=== PATIENT | female | born 1940 | race Caucasian/White ===

== ENCOUNTER 2020-07-17 16:35 | Emergency (ER) | payer MEDICARE, OTHER ==
[~2020-07-17] VITALS: Ht 158.8 cm; Wt 60.5 kg
[2020-07-17] MEDS ORDERED: IV NORMAL SALINE 1,000ML 1,000 ML IV ONE (17:00)
--- NOTE | 2020-07-17 17:11 | PHYS DOC ---
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 Patient states she does not have a socket on the right hip and use of the left lower extremity more than normal. She states she has noted some difficulty with putting weight on the left lower extremity. Denies any injury. She also states she has had loss of test and female 4 weeks. Denies any fever, cough, congestion. PCP not Dr. Negro-She states Dr. Negro is PCP for the mother. Review of Systems Review of Systems Constitutional: Denies fever or chills [] Eyes: Denies change in visual acuity, redness, or eye pain [] HENT: Denies nasal congestion or sore throat [] Respiratory: Denies cough or shortness of breath [] Cardiovascular: No additional information not addressed in HPI [] GI: Denies abdominal pain, nausea, vomiting, bloody stools or diarrhea [] : Denies dysuria or hematuria [] Musculoskeletal: left lower extremity weakness Integument: Denies rash or skin lesions [] Neurologic: reports weakness mostly to the LLE. Denies headache, focal weakness or sensory changes [] All other systems were reviewed and found to be within normal limits, except as documented in this note. Current Medications Current Medications Current Medications Medications (Trade) Dose Ordered Sig/Charlotte Start Time Stop Time Status Last Admin Dose Admin Sodium Chloride 1,000 ml @ 1,000 mls/hr 1X ONCE 07/17/20 17:00 07/17/20 17:59 Allergies Allergies Allergies Coded Allergies Type Severity Reaction Last Updated Verified No Known Drug Allergies 07/17/20 No Physical Exam Physical Exam Constitutional: Well developed, well nourished, no acute distress, non-toxic appearance. [] HENT: Normocephalic, atraumatic, bilateral external ears normal, oropharynx moist, no oral exudates, nose normal. [] Eyes: PERRLA, EOMI, conjunctiva normal, no discharge. [] Neck: Normal range of motion, no tenderness, supple, no stridor. [] Cardiovascular:Heart rate regular rhythm, no murmur [] Lungs & Thorax: Bilateral breath sounds clear to auscultation [] Abdomen: Bowel sounds normal, soft, no tenderness, no masses, no pulsatile masses. [] Skin: Warm, dry, no erythema, no rash. [] Back: No tenderness, no CVA tenderness. 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 Bilateral lower extremities are different lengths, right lower extremity is shortened chronically. No tenderness, no cyanosis, no clubbing, ROM intact, no edema. [] Neurologic: Alert and oriented X 3, normal motor function, normal sensory function, no focal deficits noted. [] Psychologic: Affect normal, judgement normal, mood normal. [] Current Patient Data Vital Signs Vital Signs Date Time Temp Pulse Resp B/P (MAP) Pulse Ox O2 Delivery O2 Flow Rate FiO2 07/17/20 16:47 98.3 69 17 165/84 (111) 96 Room Air EKG EKG [address] Bhakta sinus rhythm HR 65 no STEMI[] Radiology/Procedures Radiology/Procedures []PROCEDURE: PORTABLE CHEST 1V PORTABLE CHEST 1V, HIP LEFT 1 VIEW WITH PELVIS, KNEE LEFT 4V Clinical History: Reason: weakness on that side, pain / Spl. Instructions: / History: One view chest: Technique: AP view of the chest was obtained at 07/17/2020 4:59 PM. Comparison: None. Findings: The cardiomediastinal silhouette is normal. The pulmonary vasculature is normal. The lungs and pleural margins are clear. Impression: No evidence of an acute cardiopulmonary process. IMPRESSION: Pelvis left hip: AP view the pelvis was obtained as well as a frog leg view of left hip There is deformity of the right femoral head and neck with a chronic dislocation and pseudoarthrosis. Remaining visualized osseous structures appear normal. The left femoral acetabular relationship appears normal. IMPRESSION: 1. 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 This results in significant approximately 10 cm leg length discrepancy. 2. No acute findings. End impression 4 views left knee: AP lateral oblique and sunrise views There is marked tricompartmental degenerative change with loss of joint space and marginal spurring and eburnation. There is no lytic destructive changes. IMPRESSION: Marked tricompartmental osteoarthrosis. No acute findings. Electronically signed by: Cheryl Morelos III, MD (07/17/2020 5:46 PM) [facility] DICTATED AND SIGNED BY: CHERYL MORELOS III, MD DATE: 07/17/201745 CC: JARRED MCGEE MD; DIANN; LORNE LOCO APRN ~ PROCEDURE: CT HEAD WO CONTRAST Exam: CT head INDICATION: Weakness TECHNIQUE: Sequential axial images through the head were obtained without the administration of IV contrast. Comparisons: None FINDINGS: No focal parenchymal lesion or hemorrhage is identified. There is no midline shift or sulcal effacement. Patchy hypodensity in the periventricular white matter. Small lacunar infarct at the left basal ganglia. Lacunar infarct at the right basal ganglia. No acute vascular territory infarction is identified. Kline-white distinction is preserved. The ventricular system is within normal limits without compression hydrocephalus. The basal cisterns are well maintained. The visualized portions of the paranasal sinuses and mastoid air cells are well-pneumatized. No acute fractures. IMPRESSION: Moderate small vessel ischemic change and bilateral basal ganglia lacunar infarcts which are age indeterminate without recent prior imaging. If there are concerns for acute ischemia MRI would better evaluate. Exposure: One or more of the following in the visualized dose reduction techniques were utilized for this examination: 1. Automated exposure control 2. Adjustment of the MA and/or KV according to patient size Use of iterative of reconstructive technique Electronically signed by: Angelica Serna MD (07/17/2020 5:44 PM) [facility] DICTATED AND SIGNED BY: ANGELICA SERNA MD DATE: 07/17/201743 CC: JARRED MCGEE MD; DIANN; LORNE LOCO APRN ~ Heart Score Risk Factors: Risk Factors: DM, Current or recent (<one month) smoker, HTN, HLP, family history of CAD, obesity. Risk Scores: Risk Factors: DM, Current or recent (<one month) smoker, HTN, HLP, family history of CAD, obesity. Course & Med Decision Making Course & Med Decision Making Pertinent Labs and Imaging studies reviewed. (See chart for details) This is a 80-year-old female patient presenting to the ED today complaining of weakness specifically to the left lower extremity, patient reports she does not have a socket of the right hip and has been using the left hip more than normal which is a chronic issue. She states is feeling weaker the last couple days. Labs were negative for anything acute, she was noted to be slightly dehydrated with CK of 532, she was given IV fluids, EKG is negative. Urine analysis was negative. CT of the head-moderate small vessel ischemic change and bilateral basal ganglia lacunar infarcts which are age indeterminate without recent prior imaging. If there are concerns for acute ischemia MRI would better evaluate. 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 Left knee noted for djd on xray-f/u with Ortho. She is feeling better after IV fluids. I offered patient admission to the hospital considering she was noted to be weak on ambulation by the nurse, patient has refused completely, she states she has people who come to [facility] on, she lives home alone. I called Dr. Negro who stated he is not familiar with this patient. She was discharged home to follow-up with her own PCP. She was tested for COVID-19, results will be called to her. Anusha Disclaimer Dragon Disclaimer This electronic medical record was generated, in whole or in part, using a voice recognition dictation system. Departure Departure: Impression: Primary Impression: Left leg pain Additional Impressions: Weakness Person under investigation for COVID-19 Left knee DJD Disposition: 01 DC HOME SELF CARE/HOMELESS Condition: STABLE Referrals: JARRED MCGEE MD (PCP) follow up next week SAAD HAIDER II, MD follow up for knee pain Patient Instructions: Arthritis, Degenerative-Brief, Weakness, [id number] Additional Instructions: You were evaluated in the emergency room, you were noted to be dehydrated, we gave you IV fluids, please push fluids at home. Follow-up with your primary care doctor in the next 1 week. Come back to the ED if any point symptoms worsen. You were tested for COVID 19 we will call you with results as soon as they become available. In the meantime quarantine yourself. Maintain good hygiene. Come back to the Ed if symptoms worsen. You also have arthritis to you left knee. Please follow up with the orthopedic doctor provided in 1-2 weeks Problem Qualifiers Additional Impressions: Left knee DJD Osteoarthritis type: unspecified Qualified Codes: M17.12 - Unilateral primary osteoarthritis, left knee LORNE LOCO SHEEP OR CALF GRADER Jul 17, 2020 17:11
[2020-07-17 17:24] LABS: BARBITURATES NEG (NEG); BENZODIAZEPINES POS (NEG); CANNABINOIDS NEG (NEG); COCAINE NEG (NEG); METHADONE POS (NEG); OPIATES POS (NEG); PHENCYCLIDINE NEG (NEG)
--- NOTE | 2020-07-17 17:24 | EKG ---
[address] [address] Test Date: 2020-07-17 Test Time: 17:08:06 Pat Name: FLORA DORSEY Department: Room: Gender: F Control Panel Builder: DAI : 1940 Requested By: LORNE LOCO Order Number: [id number] Reading MD: Jeffrey Canchola Measurements Intervals [place] Rate: 65 P: 11 WY: 198 QRS: -22 QRSD: 88 T: 83 QT: 410 QTc: 432 Interpretive Statements SINUS RHYTHM LEFTWARD AXIS LEFT VENTRICULAR HYPERTROPHY Electronically Signed On 07-23-2020 12:07:34 SUBASSEMBLY SUPERVISOR by Jeffrey Canchola
[2020-07-17 17:29] LABS: BASO # 0.1 x10^3/uL (0.0-0.2); BASO % 1 % (0-3); EOS # 0.2 x10^3/uL (0.0-0.7); EOS % 3 % (0-3); HEMATOCRIT 42.7 % (36.0-47.0); HEMOGLOBIN 14.2 g/dL (12.0-15.5); LYMPH # 1.6 x10^3/uL (1.0-4.8); LYMPH % 24 % (24-48); MEAN CORPUSCULAR HEMOGLOBIN 30 pg (25-35); MEAN CORPUSCULAR HGB CONC 33 g/dL (31-37); MEAN CORPUSCULAR VOLUME 90 fL (79-100); MONO # 0.6 x10^3/uL (0.0-1.1); MONO % 9 % (0-9); NEUT # 4.2 x10^3uL (1.8-7.7); NEUT % 63 % (31-73); PLATELET COUNT 223 x10^3/uL (140-400); RED BLOOD COUNT 4.73 x10^6/uL (3.50-5.40); RED CELL DISTRIBUTION WIDTH 13.6 % (11.5-14.5); WHITE BLOOD COUNT 6.7 x10^3/uL (4.0-11.0)
[2020-07-17 17:30] LABS: AMPHETAMINE/METHAMPHETAMINE NEG (NEG); BACTERIA,URINE 0 /HPF (0-FEW); BILIRUBIN,URINE NEG (NEG); CLARITY,URINE CLEAR; COLOR,URINE YELLOW; GLUCOSE,URINE NEG (NEG); NITRITE,URINE NEG (NEG); RBC,URINE 0 /HPF (0-2); UROBILINOGEN,URINE 0.2 mg/dL (0.2 mg/dL); WBC,URINE 0 /HPF (0-4)
[2020-07-17 17:31] LABS: SQUAMOUS EPITHELIAL CELL,UR OCC /LPF
[2020-07-17 17:39] LABS: CALCIUM 9.9 mg/dL (8.5-10.1); CREATININE 0.8 mg/dL (0.6-1.0); GFR 69.4; POTASSIUM 3.5 mmol/L (3.5-5.1)
--- NOTE | 2020-07-17 17:48 | RAD ---
Exam: CT head INDICATION: Weakness TECHNIQUE: Sequential axial images through the head were obtained without the administration of IV contrast. Comparisons: None FINDINGS: No focal parenchymal lesion or hemorrhage is identified. There is no midline shift or sulcal effacement. Patchy hypodensity in the periventricular white matter. Small lacunar infarct at the left basal ganglia. Lacunar infarct at the right basal ganglia. No acute vascular territory infarction is identified. Kline-white distinction is preserved. The ventricular system is within normal limits without compression hydrocephalus. The basal cisterns are well maintained. The visualized portions of the paranasal sinuses and mastoid air cells are well-pneumatized. No acute fractures. IMPRESSION: Moderate small vessel ischemic change and bilateral basal ganglia lacunar infarcts which are age indeterminate without recent prior imaging. If there are concerns for acute ischemia MRI would better evaluate. Exposure: One or more of the following in the visualized dose reduction techniques were utilized for this examination: 1. Automated exposure control 2. Adjustment of the MA and/or KV according to patient size Use of iterative of reconstructive technique Electronically signed by: Angelica Wright MD (07/17/2020 5:44 PM) [facility]
--- NOTE | 2020-07-17 17:50 | RAD ---
PORTABLE CHEST 1V, HIP LEFT 1 VIEW WITH PELVIS, KNEE LEFT 4V Clinical History: Reason: weakness on that side, pain / Spl. Instructions: / History: One view chest: Technique: AP view of the chest was obtained at 07/17/2020 4:59 PM. Comparison: None. Findings: The cardiomediastinal silhouette is normal. The pulmonary vasculature is normal. The lungs and pleural margins are clear. Impression: No evidence of an acute cardiopulmonary process. IMPRESSION: Pelvis left hip: AP view the pelvis was obtained as well as a frog leg view of left hip There is deformity of the right femoral head and neck with a chronic dislocation and pseudoarthrosis. Remaining visualized osseous structures appear normal. The left femoral acetabular relationship appears normal. IMPRESSION: 1. 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 This results in significant approximately 10 cm leg length discrepancy. 2. No acute findings. End impression 4 views left knee: AP lateral oblique and sunrise views There is marked tricompartmental degenerative change with loss of joint space and marginal spurring and eburnation. There is no lytic destructive changes. IMPRESSION: Marked tricompartmental osteoarthrosis. No acute findings. Electronically signed by: Howard Mueller III, MD (07/17/2020 5:46 PM) [facility]
[2020-07-17 17:55] LABS: ALBUMIN/GLOBULIN RATIO 1.2 (1.0-1.7); MAGNESIUM 2.3 mg/dL (1.8-2.4); TOTAL BILIRUBIN 0.4 mg/dL (0.2-1.0); TOTAL PROTEIN 7.4 g/dL (6.4-8.2)
[2020-07-17 18:30] VITALS: BP 175/113
--- NOTE | 2020-07-19 15:28 | NUR ---
IP: notified patient of COVID result.
== END 2020-07-17 19:35 | disposition home or self-care (01) ==
LOC: ER 16:35
DX: M17.12 Unilateral primary osteoarthritis, left knee (principal); R53.1 Weakness; M79.605 Pain in left leg; Z20.828 Contact with and (suspected) exposure to other viral communicable diseases; Z85.3 Personal history of malignant neoplasm of breast; Z90.12 Acquired absence of left breast and nipple
CPT/HCPCS: 36415; 70450; 71045; 73501; 73564; 80053; 80307; 81001; 82553; 83735; 83880; 84443; 84484; 85025; 85610; 85730; 93005; 96360; 99285; C9803; J7030; U0003

== ENCOUNTER → 2020-07-19 | Outpatient (CLI) | payer MEDICARE, OTHER ==
[2020-07-17 18:30] VITALS: BP 175/113
--- NOTE | 2020-07-19 15:39 | RAD ---
Exam: CT the lumbar spine without contrast INDICATION: Back pain, multiple falls TECHNIQUE: Sequential axial images through the lumbar spine obtained without IV contrast. Sagittal and coronal reformatted images were reconstructed from the axial data and reviewed. Comparisons: None FINDINGS: There is a mild dextroconvex curvature of the lumbar spine. Vertebral body heights are well-maintained. Fracture through the lumbar spine is not identified. Multilevel spondylotic change in cervical spine with degenerative disc disease greatest at L4-L5. Mild diffuse bilateral facet arthropathy is noted. There is osseous remodeling at the right hip joint with associated degenerative changes. Diverticulosis of the sigmoid colon without evidence of acute diverticulitis. Otherwise, visualized soft tissues are unremarkable. IMPRESSION: Negative CT lumbar spine for acute traumatic injury. Exposure: One or more of the following in the visualized dose reduction techniques were utilized for this examination: 1. Automated exposure control 2. Adjustment of the MA and/or KV according to patient size 3. Use of iterative of reconstructive technique Electronically signed by: Angelica Wright MD (07/19/2020 3:36 PM) [facility]
== END ==
LOC: CT 15:18
PROVIDERS: ATTEND Family Medicine
DX: M47.812 Spondylosis without myelopathy or radiculopathy, cervical region (principal); M43.8X6 Other specified deforming dorsopathies, lumbar region; M51.36 Other intervertebral disc degeneration, lumbar region; K57.30 Diverticulosis of large intestine without perforation or abscess without bleeding
CPT/HCPCS: 72131

== ENCOUNTER 2020-12-24 18:31 | Emergency (ER) | payer MEDICARE, OTHER ==
[~2020-12-24] VITALS: Ht 158.8 cm; Wt 58.6 kg
--- NOTE | 2020-12-24 19:04 | PHYS DOC ---
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 fib on Eliquis who presents with a chief complaint of left-sided facial numbness. States that it started about a half an hour before coming to the emergency department, and started initially on the left side of the face but has a little in the left arm now as well. Denies headache, changes in vision, trouble swallowing, chest pain, shortness of breath, abdominal pain, nausea, vomiting, dysuria, hematuria or blood in the stool. Denies any other numbness/weakness/tingling. Denies any trouble ambulating. Denies confusion. Denies facial droop, slurred speech. Review of Systems Review of Systems Review of systems otherwise unremarkable except noted in HPI Allergies Allergies Allergies Coded Allergies Type Severity Reaction Last Updated Verified No Known Drug Allergies 07/17/20 No Physical Exam Physical Exam Constitutional: Well developed, well nourished, no acute distress, non-toxic appearance. [] HENT: Normocephalic, atraumatic,oropharynx moist, no oral exudates Eyes: PERRLA, EOMI, conjunctiva normal, no discharge. [] Neck: Normal range of motion, no tenderness, supple, no stridor. [] Cardiovascular:Heart rate regular rhythm, no murmur [] Lungs & Thorax: Bilateral breath sounds clear to auscultation [] Abdomen: soft, no tenderness, no masses, no pulsatile masses. [] Skin: Warm, dry, no erythema, no rash. [] Extremities: No tenderness, no cyanosis, no clubbing, ROM intact, no edema. [] Neurologic: Alert and oriented X 3, grossly normal motor function, grossly normal sensory function, cranial nerves intact, no focal deficits noted. NIH of 0 [] Psychologic: Affect normal, judgement normal, mood normal. [] Current Patient Data Vital Signs Vital Signs Date Time Temp Pulse Resp B/P (MAP) Pulse Ox O2 Delivery O2 Flow Rate FiO2 12/24/20 18:39 98.2 66 16 167/79 (108) 98 Room Air Lab Results Laboratory Tests Test 12/24/20 18:36 Glucose (Fingerstick) 120 mg/dL (70-99) H EKG EKG [] Radiology/Procedures Radiology/Procedures [] Head: No focal parenchymal lesion or hemorrhage is identified. There is no midline shift or sulcal effacement. Patchy hypodensity in the periventricular white matter. There is a lacunar infarct at the right basal ganglia. This is stable when compared to the prior exam. No acute vascular territory infarction is identified. Kline-white distinction is preserved. The ventricular system is within normal limits without compression hydrocephalus. The basal cisterns are well maintained. The visualized portions of the paranasal sinuses and mastoid air cells are well- pneumatized. No acute fractures. CTA neck: Visualized portions of the thoracic aorta are unremarkable. Two-vessel or arch configuration common origin of the brachycephalic left common carotid arteries. Right common carotid artery is patent without evidence of stenosis, occlusion or aneurysm. Cervical segment of the right internal carotid artery is patent. Left common carotid artery is patent without evidence of stenosis, occlusion or aneurysm. There is mild plaque at the origin of the left internal carotid artery without significant stenosis. Right vertebral artery is patent to basilar confluence without evidence of stenosis, occlusion or aneurysm. Left vertebral artery is patent basal confluence without evidence of stenosis, occlusion or aneurysm. Visual is paraspinal soft tissues are unremarkable. CTA HEAD: Mild calcified plaque at the cavernous segment of the right internal carotid artery without significant stenosis. Right MCA is patent. Right ANYA is patent. Mild plaque at the cavernous segment left internal carotid artery without significant stenosis. Left MCA is patent. Left ANYA is patent. There is focal stenosis at the A1 segment of the left ANYA. Basilar artery is patent without evidence of stenosis, occlusion or aneurysm. waxer operator are patent bilaterally. IMPRESSION: 1. No acute intracranial abnormality. 2. Mild plaque at the origin of the left internal carotid artery without significant stenosis. 3. Mild calcified plaque at the cavernous segments of the internal carotid arteries bilaterally without significant stenosis. 4. A short segment of moderate focal stenosis at the A1 segment of the left ANYA FINDINGS: Visualized portions of the thyroid are unremarkable unremarkable. No enlarged mediastinal lymph nodes. Heart size is normal. No pericardial effusion. Mild coronary artery calcium lesions. Thoracic aorta has a normal course and caliber. Pulmonary artery is not enlarged. No pulmonary embolus identified within the main, lobar or segmental pulmonary arteries. Airways are patent. No consolidation or pneumothorax. No suspicious lung nod ules. No pleural effusion or thickening. Visualized upper abdomen is unremarkable. No suspicious osseous lesions or acute fractures. IMPRESSION: No pulmonary embolus identified within the main, lobar or segmental pulmonary arteries. Heart Score C/O Chest Pain: No Risk Factors: Risk Factors: DM, Current or recent (<one month) smoker, HTN, HLP, family history of CAD, obesity. Risk Scores: Risk Factors: DM, Current or recent (<one month) smoker, HTN, HLP, family history of CAD, obesity. Course & Med Decision Making Course & Med Decision Making Patient is a 80-year-old female with a past medical history significant for cardiovascular disease/stroke and A. fib on Eliquis who presents with left-sided facial and arm numbness Vital signs notable for hypertension. Physical exam noted above. NIH of 0. Patient currently with mild numbness/tingling to the left side of the face and left arm but gross sensation and motor function intact. [] Dragon Disclaimer Dragon Disclaimer This electronic medical record was generated, in whole or in part, using a voice recognition dictation system. Departure Departure: Impression: Primary Impression: Left facial numbness Disposition: 01 DC HOME SELF CARE/HOMELESS Condition: GOOD Referrals: JARRED MCGEE MD (PCP) Additional Instructions: He was seen in the emergency department night for some numbness/tingling in the left side of your face. All of the imaging including CT scans of your head, neck and chest were not concerning. Your laboratory analysis was not concerning. Your vital signs are normal. You are asymptomatic here in the emergency department. As discussed, this is just a snapshot of your condition and things could change. Please call your primary care physician first thing in the morning to update on ED visit and set up a follow-up as soon as possible. Please come back to the ED immediately with new or concerning symptoms as discussed. CHERYLE SPARROW MD Dec 24, 2020 19:04
[2020-12-24 19:10] LABS: BASO # 0.1 x10^3/uL (0.0-0.2); BASO % 1 % (0-3); EOS # 0.2 x10^3/uL (0.0-0.7); EOS % 2 % (0-3); HEMATOCRIT 41.9 % (36.0-47.0); HEMOGLOBIN 13.8 g/dL (12.0-15.5); LYMPH # 2.6 x10^3/uL (1.0-4.8); LYMPH % 34 % (24-48); MEAN CORPUSCULAR HEMOGLOBIN 30 pg (25-35); MEAN CORPUSCULAR HGB CONC 33 g/dL (31-37); MEAN CORPUSCULAR VOLUME 91 fL (79-100); MONO # 0.6 x10^3/uL (0.0-1.1); MONO % 7 % (0-9); NEUT # 4.3 x10^3uL (1.8-7.7); NEUT % 56 % (31-73); PLATELET COUNT 249 x10^3/uL (140-400); RED BLOOD COUNT 4.61 x10^6/uL (3.50-5.40); RED CELL DISTRIBUTION WIDTH 15.1 % (11.5-14.5); WHITE BLOOD COUNT 7.6 x10^3/uL (4.0-11.0)
[2020-12-24] MEDS ORDERED: IOHEXOL 350 MG/ML 100 ML VIAL. IV ONE ×2 (19:15→20:15)
[2020-12-24 19:20] LABS: CALCIUM 9.4 mg/dL (8.5-10.1); CREATININE 0.7 mg/dL (0.6-1.0); GFR 80.9
--- NOTE | 2020-12-24 19:24 | RAD ---
Study: XR CHEST 1V Indication: Cardiac workup. Comparison: 07/17/2020 Findings: Unchanged cardiomediastinal silhouette and evon. No confluent airspace infiltrate, pleural effusion or pneumothorax. Unchanged left upper lobe granulo ma. Surgical clips again seen projecting over the left hemithorax at the level of the scapula. Scattered chronic osseous findings not fully assessed on this exam. Impression: No acute radiographic abnormality of the chest. No relevant change from the 07/17/2020 comparison. Electronically signed by: MARIA LUISA MATA MD (12/24/2020 7:22 PM) [facility]
[2020-12-24 19:26] LABS: ALBUMIN 3.8 g/dL (3.4-5.0); ALBUMIN/GLOBULIN RATIO 1.2 (1.0-1.7); TOTAL BILIRUBIN 0.4 mg/dL (0.2-1.0)
[2020-12-24 19:28] LABS: POTASSIUM 4.3 mmol/L (3.5-5.1)
--- NOTE | 2020-12-24 20:08 | RAD ---
Exam: CT head. CTA head and neck INDICATION: Numbness TECHNIQUE: Sequential axial images through the head were obtained without the administration of IV co ntrast. Sequential axial images through the head and neck were obtained following the administration of 100 mL of Isovue-370 Comparisons: 07/17/2020 FINDINGS: Head: No focal parenchymal lesion or hemorrhage is identified. There is no midline shift or sulcal effaceme nt. Patchy hypodensity in the periventricular white matter. There is a lacunar infarct at the right basal ganglia. This is stable when compared to the prior exam. No acute vascular territory infarction is i dentified. Kline-white distinction is preserved. The ventricular system is within normal limits without compression hydrocephalus. The basal cisterns are well maintained. The visualized portions of the paranasal sinuses and mastoid air cells are well-pneumatized. No acute fractures. CTA neck: Visualized portions of the thoracic aorta are unremarkable. Two-vessel or arch configuration common o rigin of the brachycephalic left common carotid arteries. Right common carotid artery is patent without evidence of stenosis, occlusion or aneurysm. Cervical s egment of the right internal carotid artery is patent. Left common carotid artery is patent without evidence of stenosis, occlusion or aneurysm. There is mi ld plaque at the origin of the left internal carotid artery without significant stenosis. Right vertebral artery is patent to basilar confluence without evidence of stenosis, occlusion or ane urysm. Left vertebral artery is patent basal confluence without evidence of stenosis, occlusion or aneurysm. Visual is paraspinal soft tissues are unremarkable. CTA HEAD: Mild calcified plaque at the cavernous segment of the right internal carotid artery without significa nt stenosis. Right MCA is patent. Right ANYA is patent. Mild plaque at the cavernous segment left internal carotid artery without significant stenosis. Left MCA is patent. Left ANYA is patent. There is focal stenosis at the A1 segment of the left ANYA. Basilar artery is patent without evidence of stenosis, occlusion or aneurysm. heating and ventilating worker are patent bilater ally. IMPRESSION: 1. No acute intracranial abnormality. 2. Mild plaque at the origin of the left internal carotid artery without significant stenosis. 3. Mild calcified plaque at the cavernous segments of the internal carotid arteries bilaterally with out significant stenosis. 4. A short segment of moderate focal stenosis at the A1 segment of the left ANYA Exposure: One or more of the following in the visualized dose reduction techniques were utilized for this examination: 1. Automated exposure control 2. Adjustment of the MA and/or KV according to patient size Use of iterative of reconstructive technique Electronically signed by: Angelica Wright MD (12/24/2020 8:05 PM) [facility]
[2020-12-24 20:39] VITALS: BP 196/101
--- NOTE | 2020-12-24 21:14 | RAD ---
Exam: CT of chest with contrast INDICATION: Left facial weakness, abnormal CTA TECHNIQUE: Sequential axial images through the chest obtained following the administration of 75 mL o f Omni 350 IV contrast. Sagittal and coronal reformatted images were reconstructed from the axial marcel a and reviewed. 3-D reformatted images were reconstructed from the axial data and reviewed. Comparisons: None FINDINGS: Visualized portions of the thyroid are unremarkable unremarkable. No enlarged mediastinal lymph nodes . Heart size is normal. No pericardial effusion. Mild coronary artery calcium lesions. Thoracic aorta h as a normal course and caliber. Pulmonary artery is not enlarged. No pulmonary embolus identified wit hin the main, lobar or segmental pulmonary arteries. Airways are patent. No consolidation or pneumothorax. No suspicious lung nodules. No pleural effusion or thickening. Visualized upper abdomen is unremarkable. No suspicious osseous lesions or acute fractures. IMPRESSION: No pulmonary embolus identified within the main, lobar or segmental pulmonary arteries. Exposure: One or more of the following in the visualized dose reduction techniques were utilized for this examination: 1. Automated exposure control 2. Adjustment of the MA and/or KV according to patient size 3. Use of iterative of reconstructive technique Electronically signed by: Angelica Wright MD (12/24/2020 9:12 PM) [facility]
--- NOTE | 2020-12-25 00:02 | EKG ---
[address] [address] Test Date: 2020-12-24 Test Time: 19:02:53 Pat Name: FLORA DORSEY Department: Room: Gender: F Relief Master: : 1940 Requested By: CHERYLE SPARROW Order Number: [id number] Reading MD: Measurements Intervals [place] Rate: 61 P: -8 DC: 220 QRS: -20 QRSD: 82 T: 72 QT: 416 QTc: 420 Interpretive Statements SINUS RHYTHM PROLONGED DC INTERVAL LEFTWARD AXIS CONSIDER LEFT VENTRICULAR HYPERTROPHY T ABNORMALITY IN HIGH LATERAL LEADS ABNORMAL ECG RI6.02 No previous ECG available for comparison
== END 2020-12-24 21:49 | disposition home or self-care (01) ==
LOC: ER 18:31
DX: R20.0 Anesthesia of skin (principal); I48.91 Unspecified atrial fibrillation; I10 Essential (primary) hypertension; Z86.73 Personal history of transient ischemic attack (TIA), and cerebral infarction without residual deficits
CPT/HCPCS: 36415; 70450; 70496; 70498; 71045; 71275; 80053; 82947; 83735; 84443; 84484; 85025; 93005; 99285; Q9967

== ENCOUNTER 2021-01-12 07:27 | Inpatient (IN) | payer MEDICARE, OTHER ==
[~2021-01-12] VITALS: Ht 157.5 cm; Wt 57.8 kg
[2021-01-12 08:36] LABS: BASO % 1 % (0-3); EOS # 0.1 x10^3/uL (0.0-0.7); EOS % 1 % (0-3); HEMATOCRIT 42.2 % (36.0-47.0); HEMOGLOBIN 14.1 g/dL (12.0-15.5); LYMPH # 1.3 x10^3/uL (1.0-4.8); LYMPH % 22 % (24-48); MEAN CORPUSCULAR HEMOGLOBIN 30 pg (25-35); MEAN CORPUSCULAR HGB CONC 33 g/dL (31-37); MEAN CORPUSCULAR VOLUME 91 fL (79-100); MONO # 0.5 x10^3/uL (0.0-1.1); MONO % 9 % (0-9); NEUT # 4.1 x10^3uL (1.8-7.7); NEUT % 68 % (31-73); PLATELET COUNT 217 x10^3/uL (140-400); RED BLOOD COUNT 4.66 x10^6/uL (3.50-5.40); RED CELL DISTRIBUTION WIDTH 15.1 % (11.5-14.5); WHITE BLOOD COUNT 6.1 x10^3/uL (4.0-11.0)
[2021-01-12 08:42] LABS: CALCIUM 9.4 mg/dL (8.5-10.1); CREATININE 0.7 mg/dL (0.6-1.0); GFR 80.9; POTASSIUM 3.4 mmol/L (3.5-5.1)
[2021-01-12 08:54] LABS: ALBUMIN 3.9 g/dL (3.4-5.0); ALBUMIN/GLOBULIN RATIO 1.1 (1.0-1.7); TOTAL BILIRUBIN 0.4 mg/dL (0.2-1.0); TOTAL PROTEIN 7.5 g/dL (6.4-8.2)
--- NOTE | 2021-01-12 09:12 | RAD ---
EXAM: Head CT without contrast. HISTORY: Left-sided weakness. TECHNIQUE: Computed tomographic images of the head were obtained without contrast. *One or more of the following individualized dose reduction techniques were utilized for this examina tion: 1. Automated exposure control. 2. Adjustment of the mA and/or kV according to patient size. 3. Use of iterative reconstruction technique. COMPARISON: 12/24/2020. FINDINGS: There is no acute or subacute extra-axial or intraparenchymal hemorrhage. There is no mass effect or midline shift. There is no hydrocephalus. There is decreased attenuation within the cerebral white matter, likely due to chronic small vessel d isease. There are chronic infarction involving the left greater than right thalamus, right basal gang susan and adjacent white matter and right centrum semiovale. There are basal ganglia calcifications. Th ere is cerebral volume loss. The visualized portions of the orbits, paranasal sinuses and mastoid air cells are unremarkable. No s uspicious calvarial lesion is seen. IMPRESSION: 1. No acute intracranial finding. MRI is more sensitive for acute infarction. 2. 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 3. Bilateral cerebral white matter changes, likely due to chronic small vessel disease. Electronically signed by: Keyanna Garcia MD (01/12/2021 9:09 AM) [id number]
--- NOTE | 2021-01-12 10:35 | PHYS DOC ---
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 Patient states that she has been having difficulty with her left leg for a while due to the pain in her knee due to degenerative arthritis. She states that this feels different in nature because she feels like she cannot use her leg instead of having pain re lated decreased range of motion. She was also here 2 weeks ago for left facial numbness. She states that it is improved but is similar. She does continue to have pain in her knee that is unchanged. It feels like an aching pain. Worse with movement. She denies any speech difficulty. Daughter states that she has been having difficulty with memory for quite some time. Review of Systems Review of Systems Complete ROS is negative unless otherwise documented in HPI Allergies Allergies Allergies Coded Allergies Type Severity Reaction Last Updated Verified No Known Drug Allergies 01/12/21 No Physical Exam Physical Exam General: Awake, alert, NAD. Well Nourished, well hydrated. Cooperative HEENT: Atraumatic, EOMI, PERRL, airway patent, moist oral mucosa Neck: Supple, trachea midline Respiratory: CTA bilaterally, normal effort, no wheezing/crackles CV: RRR, no murmur, cap refill <2 GI: Soft, nondistended, nontender, no masses MSK: No obvious deformities Skin: Warm, dry, intact Neuro: A&O x3, speech NL, 5/5 strength in RUE/RLE distally and proximally, 4/5 strength in LUE/LLE, CN 2-12 intact, cerebellar testing normal Psych: Normal affect, normal mood, not suicidal or homicidal Current Patient Data Vital Signs Vital Signs Date Time Temp Pulse Resp B/P (MAP) Pulse Ox O2 Delivery O2 Flow Rate FiO2 01/12/21 07:40 98.0 77 14 156/66 (96) 99 Room Air Lab Results Laboratory Tests Test 01/12/21 08:03 White Blood Count 6.1 x10^3/uL (4.0-11.0) Red Blood Count 4.66 x10^6/uL (3.50-5.40) Hemoglobin 14.1 g/dL (12.0-15.5) Hematocrit 42.2 % (36.0-47.0) Mean Corpuscular Volume 91 fL (79-100) Mean Corpuscular Hemoglobin 30 pg (25-35) Mean Corpuscular Hemoglobin Concent 33 g/dL (31-37) Red Cell Distribution Width 15.1 % (11.5-14.5) H Platelet Count 217 x10^3/uL (140-400) Neutrophils (%) (Auto) 68 % (31-73) Lymphocytes (%) (Auto) 22 % (24-48) L Monocytes (%) (Auto) 9 % (0-9) Eosinophils (%) (Auto) 1 % (0-3) Basophils (%) (Auto) 1 % (0-3) Neutrophils # (Auto) 4.1 x10^3uL (1.8-7.7) Lymphocytes # (Auto) 1.3 x10^3/uL (1.0-4.8) Monocytes # (Auto) 0.5 x10^3/uL (0.0-1.1) Eosinophils # (Auto) 0.1 x10^3/uL (0.0-0.7) Basophils # (Auto) 0.0 x10^3/uL (0.0-0.2) Sodium Level 145 mmol/L (136-145) Potassium Level 3.4 mmol/L (3.5-5.1) L Chloride Level 106 mmol/L (98-107) Carbon Dioxide Level 28 mmol/L (21-32) Anion Gap 11 (6-14) Blood Urea Nitrogen 19 mg/dL (7-20) Creatinine 0.7 mg/dL (0.6-1.0) Estimated GFR (Cockcroft-Gault) 80.9 BUN/Creatinine Ratio 27 (6-20) H Glucose Level 118 mg/dL (70-99) H Calcium Level 9.4 mg/dL (8.5-10.1) Total Bilirubin 0.4 mg/dL (0.2-1.0) Aspartate Amino Transferase (AST) 19 U/L (15-37) Alanine Aminotransferase (ALT) 28 U/L (14-59) Alkaline Phosphatase 79 U/L (46-116) Troponin I Quantitative < 0.017 ng/mL (0-0.055) RN-Fdt-Y-Type Natriuretic Peptide 112 pg/mL (0-449) Total Protein 7.5 g/dL (6.4-8.2) Albumin 3.9 g/dL (3.4-5.0) Albumin/Globulin Ratio 1.1 (1.0-1.7) EKG EKG [] Radiology/Procedures Radiology/Procedures [] Heart Score C/O Chest Pain: N/A Risk Factors: Risk Factors: DM, Current or recent (<one month) smoker, HTN, HLP, family history of CAD, obesity. Risk Scores: Risk Factors: DM, Current or recent (<one month) smoker, HTN, HLP, family history of CAD, obesity. Course & Med Decision Making Course & Med Decision Making Pertinent Labs and Imaging studies reviewed. (See chart for details) Patient is a 80-year-old female who presents to the emergency room with left arm and leg weakness that started 2 days ago. Patient has had intermittent neurologic complaints over the last 4 months. It is possible that she is having small strokes, however other neurologic pathology is also possible. Patient's weakness is minimal and left arm and left leg. She does not have any cranial nerve deficits other than some mild resolving left facial weakness that she has had for the last [address] head does not show acute pathology. Lab work is unremarkable. Patient will be admitted for evaluation by neurology. I have discussed the case with Dr. Bowman who will admit the patient. Dragon Disclaimer Dragon Disclaimer This electronic medical record was generated, in whole or in part, using a voice recognition dictation system. Departure Departure: Impression: Primary Impression: Left leg weakness Additional Impression: Left arm weakness Disposition: HOME / SELF CARE / HOMELESS Condition: STABLE Referrals: JARRED BOWMAN MD (PCP) Problem Qualifiers XAVIER NIEVES MD Jan 12, 2021 10:34
[2021-01-12] MEDS ORDERED: DILT240T8 PO (13:31)
[2021-01-12] MEDS ORDERED: APIX5TAB3 PO (13:31)
[2021-01-12] MEDS ORDERED: LOSA25TA PO (13:31)
--- NOTE | 2021-01-12 13:40 | RAD ---
EXAM: Chest, single view. HISTORY: Shortness of air. COMPARISON: 12/24/2020 FINDINGS: A frontal view of the chest is obtained. There is no infiltrate, protrusion or pneumothorax . The heart is normal in size. There are clips overlying the left upper thorax. IMPRESSION: No acute pulmonary finding. Electronically signed by: Keyanna Garcia MD (01/12/2021 1:37 PM) [id number]
--- NOTE | 2021-01-12 14:15 | RAD ---
EXAM: Carotid Doppler sonogram. HISTORY: Transient ischemic attack. Atherosclerosis. TECHNIQUE: Kline scale and color Doppler sonographic evaluation of the neck with spectral waveform fran lysis was performed and static images are submitted for review. FINDINGS: The peak systolic velocity within the right common carotid artery is 27 cm/sec. The peak sy stolic velocity within the right internal carotid artery is 63 cm/sec and the end diastolic velocity within the right internal carotid artery is 18 cm/sec. The right ICA/CCA ratio is 0.64. The peak systolic velocity within the left common carotid artery is 100 cm/sec. The peak systolic angel ocity within the left internal carotid artery is 63 cm/sec and the end diastolic velocity within the left internal carotid artery is 23 cm/sec. The left ICA/CCA ratio is 0.77. There is normal antegrade flow within both vertebral arteries. IMPRESSION: No Doppler evidence of greater than 50 percent stenosis involving the internal carotid ar teries. PQRS Compliance Statement - Stenosis calculations for CT, MR and conventional angiography are based u brandon measurement of the distal ICA diameter in accordance with the NASCET methodology. Stenosis calcu lations for carotid ultrasound studies are derived from validated velocity criteria which are known t o correlate with the NASCET methodology. Electronically signed by: Keyanna Garcia MD (01/12/2021 2:12 PM) [id number]
--- NOTE | 2021-01-12 14:27 | NUR ---
The patient, FLORA DORSEY, 80 y/o, F admitted by JARRED MCGEE MD, was given written information regarding hospital policies, unit procedures and contact persons. Valuables were checked and left with patient. Orders obtained, meds restarted per MD. Patient in stable condition at this time.
[2021-01-12 15:00] VITALS: BP 129/63
--- NOTE | 2021-01-12 17:32 | EKG ---
[address] [address] Test Date: 2021-01-12 Test Time: 16:24:15 Pat Name: FLORA DORSEY Department: Room: [place] [address] Gender: F Director Of Elementary Education: : 1940 Requested By: JARRED MCGEE Order Number: [id number] Reading MD: Measurements Intervals [place] Rate: 58 P: -5 NM: 224 QRS: -21 QRSD: 82 T: 128 QT: 370 QTc: 366 Interpretive Statements SINUS RHYTHM PROLONGED NM INTERVAL LEFTWARD AXIS CONSIDER LEFT VENTRICULAR HYPERTROPHY QRS(T) CONTOUR ABNORMALITY CONSIDER ANTEROLATERAL MYOCARDIAL DAMAGE ABNORMAL ECG RI6.01 No previous ECG available for comparison
[2021-01-12 19:05] VITALS: BP 136/71
[2021-01-12] MEDS: APIXABAN 5 MG TABLET. PO SCH (20:23)
[2021-01-12 21:19] LABS: BILIRUBIN,URINE NEG (NEG); CLARITY,URINE HAZY; COLOR,URINE YELLOW; GLUCOSE,URINE NEG (NEG)
[2021-01-12 21:20] LABS: BACTERIA,URINE MOD /HPF (0-FEW); NITRITE,URINE POS (NEG); SQUAMOUS EPITHELIAL CELL,UR FEW /LPF; UROBILINOGEN,URINE 0.2 mg/dL (0.2 mg/dL)
[2021-01-12 22:42] VITALS: BP 161/62
--- NOTE | 2021-01-13 02:12 | HP ---
ADMIT DATE: 01/12/2021 HISTORY OF PRESENT ILLNESS: A 80-year-old female who came in through the Emergency Room with left sided facial weakness as well as recurrent bouts of 2 days of left arm weakness, numbness and left leg weakness. The patient has been difficulty with her leg due to pain in the knee, but other than that, the patient has this weakness feeling on the left side of her body. The patient seems like it is getting worse and the patient has been having problems with memory, which seems also be progressive. PAST MEDICAL HISTORY: Includes that of TIAs x 3, cardiac disorders, anticoagulant therapy, rectal surgery, breast cancer, mastectomy, hysterectomy, urinary tract infections, chickenpox and diphtheria, tetanus up-to-date vaccinations. ALLERGIES: No known drug allergies. FAMILY HISTORY: Noncontributory. SOCIAL HISTORY: The patient denies smoking, alcohol or drug use. REVIEW OF SYSTEMS: The patient outside of this weakness on the left side of her body, denies headaches, visual changes, blurred vision, double vision. Denies chest pain, shortness of breath, abdominal pain. Denies any melena, hematochezia, hematemesis and neurologically baseline except for this left sided weakness. PHYSICAL EXAMINATION: GENERAL: Pleasant white female. VITAL SIGNS: Blood pressure 160/62, respiratory rate 18, pulse 60, afebrile, 94% RA. HEENT: Atraumatic, normocephalic. Eyes: PERRLA without jaundice. The mouth and throat were normal. NECK: Supple. LUNGS: Clear. CARDIOVASCULAR: Regular sinus rhythm, S1, S2, without murmur, rub, thrill, or extra heart sound. ABDOMEN: Soft, nontender. EXTREMITIES: No clubbing, cyanosis or edema. NEUROLOGIC: Speech fluent, spontaneous, appropriate, but does have some left sided facial weakness as well as left arm weakness and left leg weakness with increased reflexes. LABORATORY DATA: The patient's lab shows a normal white count. CBC was also basically normal except for low potassium of 3.4, elevated blood sugar and elevated cholesterol of 260. IMPRESSION: Transient ischemic attack versus stroke in evolution. PLAN: The patient will be admitted for further evaluation and observation and consult with ____, neurologist. JARRED MCGEE MD DR: SARAH/jolene JOB#: [id number] / [id number]
--- NOTE | 2021-01-13 04:08 | NUR ---
Assumed care of pt at 0100. Report received from NORRIS Frank. Pt up to BSC x2 assist to void. Pt is weak and very unsteady. Now resting in bed with call light in reach and bed alarm set for safety.
[2021-01-13 06:06] VITALS: BP 151/74
[2021-01-13] MEDS: APIXABAN 5 MG TABLET. PO SCH ×2 (08:31→20:57)
[2021-01-13] MEDS: LOSARTAN 25 MG TABLET. PO SCH (08:31)
[2021-01-13] MEDS ORDERED: ATOR20TA58 PO (13:15)
[2021-01-13 14:06] VITALS: BP 144/67
--- NOTE | 2021-01-13 14:57 | CONS ---
DATE OF CONSULTATION: 01/12/2021 NEUROLOGY CONSULTATION REFERRING PHYSICIAN: Dr. Bowman. REASON FOR CONSULTATION: Rule out TIA versus stroke. HISTORY OF PRESENT ILLNESS: This is a 80-year-old right-handed female who was admitted through Emergency Room this morning after she presented with generalized weakness and worsening of weakness of the lower extremities. The patient states she has been having these symptoms for approximately 2 weeks, but it is getting worse in the last two days to the point she is not able to stand up without help. This morning, the patient started having numbness and paresthesia of the left upper extremity associated with weakness as well. She denies headaches, visual disturbances, chest pain, shortness of breath or palpitation, dysarthria or dysphagia. The patient was found to have atrial fibrillation in 08/2020 after she underwent surgery for rectal prolapse. She has been having difficulty with ambulation due to severe arthritis of the left knee for which she has been seen by orthopedics service and given cortisone shot. The patient denies vertigo, dysarthria or dysphagia. She has been having slowly progressive memory loss since 06/2020. She reported multiple falls recently due to severe weakness of the lower extremities. She denies bowel or bladder dysfunction. Initial nonenhanced head CT scan before in the Emergency Room revealed no acute intracranial process, but showed multiple infarcts more prominent on the left side along with right basal ganglia infarct and extensive small vessel ischemic changes. Carotid Doppler study performed today revealed no significant stenosis. 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 Right hip dislocation or deformities since early childhood education coordinator. 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 The patient reported hypertension in recent weeks. She has been followed by a customer account technician. SOCIAL HISTORY: Patient lives at home. She denies smoking, alcohol drinking or illicit drug use. FAMILY HISTORY: Positive for dementia and hypertension. CURRENT MEDICATIONS: Losartan 25 mg p.o. daily, diltiazem 240 mg p.o. daily and Eliquis 5 mg b.i.d. ALLERGIES: No known drug allergies. REVIEW OF SYSTEMS: A 12-point review of system was performed. As mentioned above, history of present illness, and consistent with weakness of the left upper and lower extremities associated with numbness and paresthesia more prominent on the left upper extremity. PHYSICAL EXAMINATION: GENERAL: Well-developed, well-nourished female in no acute distress. She weighs 56.7 kilos. VITAL SIGNS: Blood pressure 156/66, respiratory rate 14, pulse is 77 and regular, oxygen saturation 99% on room air and temperature 98. HEENT: Normocephalic, atraumatic, otherwise unremarkable. NECK: Supple, negative for carotid bruit, lymphadenopathy or thyromegaly. LUNGS: Clear to A and P. CARDIOVASCULAR: Regular rate and rhythm, normal S1, S2. There is no S3, S4 or murmur. ABDOMEN: Soft. Bowel sounds positive. EXTREMITIES: Negative for cyanosis, clubbing or edema. NEUROLOGIC: MENTAL STATUS: The patient is alert and oriented to herself and place. The patient is disoriented to time. Speech is fluent. There is no language dysfunction. The patient recalls 1/3 immediately ____ 3 minutes. Judgment and abstracting thinking are fair. The patient denies hallucination or delusion. CRANIAL NERVES: Visual muro are full. The pupils are reactive to light and accommodation. The extraocular movements are intact. There is no nystagmus. There is no facial motor or sensory deficits. Hearing is intact bilaterally. The palate is elevated symmetrically. Sternocleidomastoid muscles are powerful bilaterally. The patient shrug her shoulders symmetrically and protrudes her tongue in the midline without fasciculation or atrophy. MOTOR EXAMINATION: Marked weakness of the hand small muscles, probably due to CMT. The strength is 4/5 in the left upper extremity and 5/5 in the right upper extremity. The strength is 4/5 in both lower extremities with slight drooping of the left hand compared to that on the right side. Sensory examination revealed diminished pinprick and light touch sense in distal upper and lower extremities. Deep tendon reflexes were symmetric and hypoactive with absent Achilles responses. Gait not tested as the patient is not able to stand. IMPRESSION: 1. Possible new infarct affecting her left upper and lower extremities with exacerbation of weakness, probably due to severe arthritis of the left knee. 2. Difficult to walk probably multifactorial due to severe arthritis of the left knee and previous multiple infarcts. 3. Atrial fibrillation and possible paroxysmal type. 4. Depression. RECOMMENDATION: 1. Continue with current care and home medications. 2. Physical therapy evaluation. MARISOL/KASSIE/JAILENE DOS SANTOS: MARISOL/jolene TID: [id number]
[2021-01-13 18:51] VITALS: BP 121/55
--- NOTE | 2021-01-13 18:51 | PN ---
DATE: SUBJECTIVE: A 80-year-old female with left sided hemiparesis, which appears to be probably an extension of previous strokes. In any case, she has been on Eliquis, but despite that the patient was admitted because of the progression of what appeared to be a previous series of stroke she has had in the past. She is on chronic Eliquis for history of atrial fibrillation after a prolapsed bladder repair, but in any case, the patient is in good spirits. We are trying to get her some rehab here as well as long-term physical and occupational therapy to hopefully regain some of her strength in that left side, so she can become more independent. Patient's family included her daughter and grandson. OBJECTIVE: VITAL SIGNS: Blood pressure 144/67, respiratory rate 18, pulse 65, afebrile, 94% on room air. GENERAL: The patient is alert and oriented. NEUROLOGIC: Speech fluent, spontaneous, has weakness of the left arm, left leg, unable to pivot out of bed because of the weakness unfortunately. IMPRESSION: New infarction, right sided cerebrovascular accident with left upper and lower extremity paresthesia and paresis, walking related difficulties related to multiple problems of arthritis as well as previous infarcts. Her EKG here was sinus rhythm, but she probably goes into paroxysmal atrial fib and the patient in turn is on Eliquis; therefore is controlled over the paroxysmal atrial fibrillation. JARRED MCGEE MD DR: SARAH/jolene JOB#: [id number] / [id number]
[2021-01-13] MEDS ORDERED: ATORVASTATIN CALCIUM 20 MG TABLET PO SCH (21:00)
[2021-01-13 22:10] VITALS: BP 156/64
[2021-01-14 06:07] VITALS: BP 157/76
[2021-01-14] MEDS: APIXABAN 5 MG TABLET. PO SCH (09:13)
[2021-01-14] MEDS: LOSARTAN 25 MG TABLET. PO SCH (09:17)
--- NOTE | 2021-01-14 09:55 | PN ---
DATE: 01/13/2021 SUBJECTIVE: The patient denies any new medical or neurological complaints. However, she continues to have left-sided weakness. She denies headaches, visual disturbances, chest pain, shortness of breath or palpitation, dysarthria or dysphagia. OBJECTIVE: GENERAL: Well-developed, well-nourished female, not in acute distress. VITAL SIGNS: Blood pressure 151/74, respiratory rate 16, pulse is 60 and regular, oxygen saturation is 96, and temperature is 98.1. HEENT: Normocephalic, atraumatic, otherwise unremarkable. NECK: Supple, negative for carotid bruit, lymphadenopathy or thyromegaly. LUNGS: Clear to A and P. HEART: Regular rate and rhythm, normal S1, S2. ABDOMEN: Soft. Bowel sounds positive. EXTREMITIES: Negative for cyanosis, clubbing, or pitting edema. NEUROLOGIC: Mental status: The patient is alert and oriented to herself and situation. Speech is fluent. There is no language dysfunction. Memory, judgment and abstracting thinking are fair. The patient denies hallucination or delusion. Cranial nerves are intact. Motor examination reveals left hemiparesis, more prominent in the left upper extremity. Strength is 4/5 in the left upper and lower extremities and 5/5 in the right upper and lower extremities. Sensory examination revealed diminished pinprick and light touch senses in patchy distributions in distal lower extremities. Deep tendon reflexes were symmetric and hypoactive with absent Achilles responses. Gait not tested. ASSESSMENT: 1. 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 2. Multiple medical problems, include: ZUHAIR DR: Jesenia TID: [id number]
[2021-01-14 11:00] VITALS: BP 128/70
--- NOTE | 2021-01-14 14:37 | NUR ---
NURSING NOTE DISCHARGE PT DISCHARGED TO [facility], VIA TRANSPORT. NURSE HALLE HO RN CALLED REPORT TO SERGIO AT [facility]. PT FAMILY HERE AT DISCHARGE AND PACKED BELONGINGS. PT FAMILY BROUGHT PT 2 PAIR OF CLOTHING, SHOES, AND WALKER TO GO TO REHAB WITH HER. NORRIS CASANOVA.
--- NOTE | 2021-01-14 23:07 | PN ---
DATE: 01/13/2021 SUBJECTIVE: Patient denies any new medical or neurological complaints. She continues to have weakness of the left upper and lower extremities. OBJECTIVE: GENERAL: Well-developed, well-nourished female not in acute distress. VITAL SIGNS: Blood pressure 151/74, respiratory rate 16, pulse is 60 and regular, oxygen saturation 95% on room air and temperature 98.1. HEENT: Normocephalic, atraumatic, otherwise unremarkable. NECK: Supple. Negative for carotid bruit, lymphadenopathy or thyromegaly. LUNGS: Clear to A and P. CARDIOVASCULAR: Regular rate and rhythm. Normal S1, S2. ABDOMEN: Soft. Bowel sounds positive. No palpable mass, organomegaly, or tenderness. EXTREMITIES: Negative for cyanosis, clubbing or pedal edema. NEUROLOGIC: Mental status: The patient is alert and oriented to herself and situation. Speech is fluent. There is no language dysfunction. Memory, judgment and abstract thinking are fair. The patient denies hallucination or delusion. Cranial nerves are intact. 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 The strength is 4/5 in the left upper and lower extremities, the strength also was 5/5 throughout. Sensory examination revealed diminished pinprick and light touch senses in patchy distributions. Deep tendon reflexes were symmetric and hypoactive with absent Achilles responses. Gait not tested. IMPRESSION: 1. Left hemiparesis, more prominent on the left upper extremity, probably to a previous stroke. However, a new right hemispheric infarct could not be entirely ruled out. 2. Generalized weakness with muscle atrophy due to Ukgtnqj-Mfbvl-Wbtrz disease. 3. Multiple medical problems includes dementia, hypertension, paroxysmal atrial fibrillation and gait disturbance due to severe arthritis and a right hip dislocation. RECOMMENDATIONS: 1. Continue with current management. 2. Physical therapy. 3. Follow up with Dr. Dillard after 1 week from discharge to workup for dementia and probably arrange for electroencephalogram. MARISOL/KACIE DR: Jesenia TID: [id number]
--- NOTE | 2021-01-15 05:31 | PN ---
DATE: 01/14/2021 SUBJECTIVE: The patient denies any new medical or neurological complaints. She continues to have left-sided weakness. She denies headaches, visual disturbances, nausea, vomiting, chest pain, shortness of breath or palpitations. OBJECTIVE: GENERAL: Well-developed, well-nourished female, not in acute distress. VITAL SIGNS: Blood pressure 157/76, respiratory rate 20, pulse is 56 and regular. Oxygen saturation is 97%, temperature 98.4. HEENT: Normocephalic, atraumatic, otherwise unremarkable. NECK: Supple, negative for carotid bruit, lymphadenopathy or thyromegaly. LUNGS: Clear to A and P. HEART: Regular rate and rhythm, normal S1, S2. There is no S3, S4 or murmur. ABDOMEN: Soft. Bowel sounds positive. EXTREMITIES: Negative for cyanosis, clubbing or pedal edema. NEUROLOGIC: The patient is alert and oriented x2. The speech is fluent. There is no language dysfunction. Memory, judgment and abstract thinking are fair. The patient denies hallucination or delusion. Cranial nerves are intact. 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 Sensory examination revealed diminished pinprick and light touch senses in patchy distributions in distal lower extremities and upper extremities. Deep tendon reflexes were symmetric and hypoactive with absent Achilles responses. Gait not tested. IMPRESSION: 1. Status post stroke resulted in right hemiparesis. 2. 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 3. Tizfdca-Yuglk-Nmils disease affecting the upper and lower extremities. 4. Gait disturbances secondary to severe arthritis and right hip dislocations, dementia. RECOMMENDATIONS: Continue with current management and previous neurological recommendations. JE DR: Jesenia TID: [id number]
--- NOTE | 2021-01-24 11:07 | DS ---
HOSPITAL COURSE: A 80-year-old female came in through the emergency room, left-sided facial weakness, recurrent bouts of 2 days of left arm weakness, numbness, tingling in her left leg as well. The patient was admitted for possible stroke in evolution versus TIA. The patient was admitted. She was seen by the eminent neurologist, Dr. Dillard, who pointed out that the patient had left-sided hemiparesis, left upper extremity, probably previous stroke, although there probably was extension of that stroke because of the increased weakness to that arm and left side of the body. She could have had a new right hemispheric infarct, cannot be totally ruled out. The patient's vital signs include blood pressure 157/76, pulse 60, afebrile. The patient otherwise her labs, her CBC was perfectly normal. The patient's electrolytes, 145, 3.4, BUN and creatinine of 19 and 0.7, blood sugar 118, total cholesterol of 260, LDL of 130. TSH was normal, HDL for whatever reason was 109. She had no drug allergies. The patient received physical and occupational therapy and made good progress during the rest of her hospitalization, was stabilized. The patient was discharged home and will follow up activity PT, OT as an outpatient. FINAL DIAGNOSES: Left-sided hemiparesis, multiple transient ischemic attacks and previous infarcts bilaterally, Dsbgflz-Rpgow-Pmlkz disease affecting the upper and lower extremities, gait disturbance secondary to severe arthritis, right hip locations in the past, hypercholesterolemia, hypokalemia. COVID negative. The patient will be on a heart healthy diet as noted to get that cholesterol down and to continue follow up as an outpatient. Her medications are atorvastatin 20, losartan 25, diltiazem 240, Eliquis 5 mg. SARAH/KALIN/AMERICA DR: SARAH/jolene TID: [id number]
== END 2021-01-14 14:25 | DRG 65 ==
LOC: ER 07:27 → ICU 10:42 → 1 SOUTH 18:14
PROVIDERS: ADMIT Family Medicine; ATTEND Family Medicine
DX: I63.89 Other cerebral infarction (principal); I69.354 Hemiplegia and hemiparesis following cerebral infarction affecting left non-dominant side; G60.0 Hereditary motor and sensory neuropathy; F32.9 Major depressive disorder, single episode, unspecified; E87.6 Hypokalemia; I10 Essential (primary) hypertension; M17.0 Bilateral primary osteoarthritis of knee; I48.0 Paroxysmal atrial fibrillation; M16.11 Unilateral primary osteoarthritis, right hip; E78.00 Pure hypercholesterolemia, unspecified; F03.90 Unspecified dementia, unspecified severity, without behavioral disturbance, psychotic disturbance, mood disturbance, and anxiety; Z85.3 Personal history of malignant neoplasm of breast; Z20.822 Contact with and (suspected) exposure to COVID-19; Z90.710 Acquired absence of both cervix and uterus; Z90.12 Acquired absence of left breast and nipple; Z82.49 Family history of ischemic heart disease and other diseases of the circulatory system; Z79.01 Long term (current) use of anticoagulants
CPT/HCPCS: 36415; 70450; 71045; 80053; 80061; 81001; 83880; 84443; 84484; 85025; 85379; 87086; 87426; 93005; 93880; U0003; U0005; 97530; 99285-25

== ENCOUNTER → 2021-06-09 | Outpatient (CLI) | payer MEDICARE, OTHER ==
[~2021-06-09] MED LIST: APIX5TAB3 PO; ATOR20TA58 PO; DILT240T8 PO; LOSA25TA PO; NITR100C PO; TRAM50TA PO
== END ==
LOC: LAB 14:20
PROVIDERS: ATTEND Ophthalmology
DX: Z01.812 Encounter for preprocedural laboratory examination (principal); H26.9 Unspecified cataract; Z20.822 Contact with and (suspected) exposure to COVID-19
CPT/HCPCS: U0003

== ENCOUNTER → 2021-06-12 | Day surgery (SDC) | payer MEDICARE, OTHER ==
[~2021-06-12] MED LIST changes: +ACETAMINOPHEN 500 MG TABLET PO PRN; +BALANCED SALT IRRIG SOLN NO.2 500 ML IO ONE; +BENZONATATE 100 MG CAPSULE. PO PRN; +BRIMONIDINE 0.2% OPHTH SOLUTION 5ML BOTTLE. OS ONE; +CEFUROXIME OPHTH 4 MG/0.4 ML SYRINGE. OS ONE; +CHONDROIT-SOD-HYALURONATE KIT. OS ONE; +IBUPROFEN 200 MG TABLET PO PRN; +IPRATRPIUM/ALBUTEROL 0.5/2.5MG 3 ML NEBU. NEB PRN; +IV RINGERS SOLUTION,LACTATED 1,000 ML IV SCH; +LIDO/EPI IN BSS OPHTH 2.7 ML SYRINGE. OS ONE; +MIDAZOLAM HCL PF 2 MG/2 ML VIAL. ONE; +ONDANSETRON PF 4 MG/2 ML VIAL. IV PRN; +PHENYLEPHRINE 10% OPHTH SOLUTION 5ML BOTTLE. OS PRN; +POVIDONE-IODINE 5% OPHTH SOLUTION 30ML BOTTLE. OS ONE; +POVIDONE-IODINE 5% OPHTH SOLUTION 30ML BOTTLE. OS PRN; +PROPARACAINE 0.5% OPHTH SOLUTION 15ML BOTTLE. OS ONE; +PROPARACAINE 0.5% OPHTH SOLUTION 15ML BOTTLE. OS PRN; +prednisoLONE ACETATE 1% OPHTH SUSPENSION 5ML BOTTLE. OS ONE
[2021-06-12] MEDS: TOBRAMYCIN 0.3% OPHTH SOLUTION 5ML BOTTLE. OS SCH ×2 (11:55→12:06)
[2021-06-12] MEDS: PHENYLEPHRINE 2.5% OPHTH SOLUTION 2ML BOTTLE. OS SCH ×3 (11:55→12:23)
[2021-06-12] MEDS: TROPICAMIDE 1% OPHTH SOLUTION 15ML BOTTLE. OS SCH ×3 (11:55→12:23)
[2021-06-12] MEDS: KETOROLAC TROMETHAMINE 0.5% OPHTH SOLUTION BOTTLE. OS SCH ×2 (11:55→12:06)
--- NOTE | 2021-06-12 13:06 | PDOC4 ---
SURGEON: Chinyere Garcia MD Date of Procedure: 06/12/21 PREOP Diagnosis Visually significant cataract: Left Eye OS POSTOP Diagnosis Same PROCEDURE: Phaco w/ posterior chamber IOL: Left Eye OS ANESTHESIA Deep forniceal periocular 2% Lidocaine jelly Patti/retro bulbar block with 2% Lidocaine with 0.5% Marcaine DESCRIPTION OF PROCEDURE The risks, benefits, and alternatives were discussed with the patient who elected to proceed. Informed consent was obtained in writing and placed in the chart After anesthetizing the eye topically, the patient was taken to the operating room, and the operative eye was prepped and draped in the usual sterile fashion for ocular surgery. A wire lid speculum was placed. A 1-mm clear corneal paracentesis incision was created with the side-port blade at a position three o'clock hours clockwise from the temporal cornea. Then, 1% non-preserved Lidocaine with epinephrine was injected into the anterior chamber followed by viscoelastic. Cotton-tipped applicators were used to stabilize the globe, and a 2.4 mm keratome was used to create a self-sealing incision in clear cornea at the temporal limbus. The Utrata forceps were used to create a continuous curvilinear capsulorrhexis. Balanced saline solution was injected via cannula beneath the capsulorrhexis edge to hydrodissect the lens nucleus and cortex from the lens capsule. The phacoemulsification handpiece and a chopping instrument were then used to remove the lens nucleus. The remaining epinuclear material and cortex were removed with the irrigation/aspiration handpiece. Vis coelastic was used to re-inflate the lens capsule, and the intraocular lens was injected directly into the capsular bag. The corneal wound edges were hydrated with balanced salt solution on a cannula and the irrigation/aspiration handpiece was used to extract the remaining viscoelastic. Cefuroxime 0.1mg/ml / Vigamox 0.5% was injected into the anterior chamber intracamerally. The wounds were inspected and found to be watertight at an appropriate intraocular pressure. Topical antibiotic drops were placed on the corneal surface. LRI: No If Yes, Number [] [place] [] Length [] degrees Depth [] microns Incision [place]: 180 Toric Lens [place] [] Patch/shield with Maxitrol/Tobradex/Erythromycin ointment: Yes No Co-managed patients/postop examination stable for co-management with referring doctor. EBL EBL: None SPECIMANS COLLECTED Specimens Collected: None CHINYERE GARCIA MD Jun 12, 2021 13:06
[2021-06-12 13:08] VITALS: BP 173/94
== END | disposition home or self-care (01) ==
LOC: SURG 11:13
PROVIDERS: ATTEND Ophthalmology
DX: H25.89 Other age-related cataract (principal); I48.91 Unspecified atrial fibrillation; M19.90 Unspecified osteoarthritis, unspecified site; Z90.710 Acquired absence of both cervix and uterus; Z98.890 Other specified postprocedural states; Z79.899 Other long term (current) drug therapy
CPT/HCPCS: 66984; V2632; J2250